=== PATIENT | male | born 1975 | race Caucasian/White ===

== ENCOUNTER 2017-10-29 19:45 | Emergency (ER) | payer SELFPAY ==
[~2017-10-29 19:45] MED LIST changes: -LEVE500T73 PO
--- NOTE | 2017-10-29 19:50 | ER Report ---
History and Physical Time Seen By MD: 19:50 HPI/ROS This is a 42-year-old male who presents to the emergency department in police custody complaining of chest pain. He was let out of snf on [address] approximately 24 hours ago. He had been chilled for his 4th felony DUI. Upon discharge he started drinking again. The patient states that he has had chest pain since 8: 00 this morning. He was pulled over by local police when they noticed he was driving erratically. He was arrested for DUI, and upon arrest he told officers that he was experiencing chest pain. Upon arrival he says he has been experiencing chest pain since this morning. No trauma. No cough or fever chills. Remainder of the 14 system rev: Yes Allergies: Coded Allergies: No Known Drug Allergies (Verified , 10/29/17) Home Meds Reported Medications Levetiracetam (LEVETIRACETAM) 500 Mg Tablet, 500 MG PO BID 10/29/17 Discontinued Reported Medications Oxycodone/Acetaminophen (OXYCODONE/ACETAMINOPHEN 5MG/325 MG) 5 Mg/325 Mg Tab, 1 - 2 TAB PO Q6H Y, #45 0 Refills TAKE 1-2 TABS EVERY 6 HOURS NEEDED FOR PAIN. 10/13/09 Ofloxacin (Ocuflox) 5 Ml Drops, 8 - 10 DROP LEFT EAR DAILY, [address] 8-10 DROPS OF OFLAXACIN IN LEFT EAR ONCE A DAY FOR 15 DAYS. 10/13/09 Reviewed Nurses Notes: Yes Old Medical Records Reviewed: Yes Hx Smoking: Yes Exposure to Second Hand Smoke?: Yes Hx Alcohol Use: Yes Constitutional Vital Sign - Last 24 Hours 10/29/17 10/29/17 10/29/17 10/29/17 19:46 19:46 19:58 20:00 Temp 99.1 Pulse 104 94 Resp 12 B/P (MAP) 118/83 (95) 118/83 118/80 (93) Pulse Ox 97 97 O2 Delivery Nasal Cannula O2 Flow Rate 2.0 10/29/17 10/29/17 10/29/17 10/29/17 20:15 20:30 20:45 21:00 Pulse 95 98 96 95 Resp 24 21 12 B/P (MAP) 126/87 (100) 101/86 (91) Pulse Ox 98 97 Intake and Output 6/10/29/17 10/30/17 15:00 23:00 07:00 Intake Total 1000 ml Balance 1000 ml Physical Exam General Appearance: The patient is alert, has no immediate need for airway protection and no current signs of toxicity. He is clearly intoxicated Eyes: Pupils equal and round no injection. Respiratory: Chest is non tender, lungs are clear to auscultation. Cardiac: regular rate and rhythm Gastrointestinal: Abdomen is soft and non tender, no masses, bowel sounds normal. Extremities have full range of motion and are non tender. Skin: No rashes or lesions. DIFFERENTIAL DIAGNOSIS: After history and physical exam differential diagnosis was considered for chest pain including but not limited to myocardial ischemia, pericarditis pulmonary embolus, chest wall pain, pleural inflammation and pulmonary infectious causes. Medical Decision Making Data Points Result Diagram: 10/29/17202410/29/172024 Laboratory Hematology Test 10/29/17 20:25 Red Blood Count 4.68 M/uL (4.00-5.60) Mean Corpuscular Volume 89.5 fL (80.0-96.0) Mean Corpuscular Hemoglobin 30.5 pg (26.0-33.0) Mean Corpuscular Hemoglobin Concent 34.0 g/dL (32.0-36.0) Red Cell Distribution Width 14.6 % (11.5-14.5) Mean Platelet Volume 7.6 fL (7.2-11.1) Neutrophils (%) (Auto) 57.2 % (39.4-72.5) Lymphocytes (%) (Auto) 29.3 % (17.6-49.6) Monocytes (%) (Auto) 7.9 % (4.1-12.4) Eosinophils (%) (Auto) 2.1 % (0.4-6.7) Basophils (%) (Auto) 3.5 % (0.3-1.4) Nucleated RBC Relative Count (auto) 0.1 /100WBC Neutrophils # (Auto) 3.8 K/uL (2.0-7.4) Lymphocytes # (Auto) 1.9 K/uL (1.3-3.6) Monocytes # (Auto) 0.5 K/uL (0.3-1.0) Eosinophils # (Auto) 0.1 K/uL (0.0-0.5) Basophils # (Auto) 0.2 K/uL (0.0-0.1) Nucleated RBC Absolute Count (auto) 0.01 K/uL Peripheral Blood Smear Yes Y/N Sodium Level 145 mmol/L (137-145) Potassium Level 3.8 mmol/L (3.5-5.0) Chloride Level 104 mmol/L (98-107) Carbon Dioxide Level 23 mmol/L (22-30) Blood Urea Nitrogen 9 mg/dl (9-21) Creatinine 1.00 mg/dl (0.66-1.25) Glomerular Filtration Rate Calc > 60.0 Random Glucose 103 mg/dl (75-110) Calcium Level 8.4 mg/dl (8.4-10.2) Total Bilirubin 0.2 mg/dl (0.2-1.3) Aspartate Amino Transf (AST/SGOT) 55 U/L (0-35) Alanine Aminotransferase (ALT/SGPT) 49 U/L (0-56) Alkaline Phosphatase 68 U/L (0-126) Troponin I < 0.012 ng/ml Total Protein 7.8 g/dl (6.3-8.2) Albumin 4.4 g/dl (3.5-5.0) Serum Alcohol 299 mg/dl Chemistry Test 10/29/17 20:25 White Blood Count 6.6 k/uL (4.5-11.0) Red Blood Count 4.68 M/uL (4.00-5.60) Hemoglobin 14.3 g/dL (14.0-18.0) Hematocrit 41.9 % (42.0-52.0) Mean Corpuscular Volume 89.5 fL (80.0-96.0) Mean Corpuscular Hemoglobin 30.5 pg (26.0-33.0) Mean Corpuscular Hemoglobin Concent 34.0 g/dL (32.0-36.0) Red Cell Distribution Width 14.6 % (11.5-14.5) Platelet Count 371 K/uL (150-450) Mean Platelet Volume 7.6 fL (7.2-11.1) Neutrophils (%) (Auto) 57.2 % (39.4-72.5) Lymphocytes (%) (Auto) 29.3 % (17.6-49.6) Monocytes (%) (Auto) 7.9 % (4.1-12.4) Eosinophils (%) (Auto) 2.1 % (0.4-6.7) Basophils (%) (Auto) 3.5 % (0.3-1.4) Nucleated RBC Relative Count (auto) 0.1 /100WBC Neutrophils # (Auto) 3.8 K/uL (2.0-7.4) Lymphocytes # (Auto) 1.9 K/uL (1.3-3.6) Monocytes # (Auto) 0.5 K/uL (0.3-1.0) Eosinophils # (Auto) 0.1 K/uL (0.0-0.5) Basophils # (Auto) 0.2 K/uL (0.0-0.1) Nucleated RBC Absolute Count (auto) 0.01 K/uL Peripheral Blood Smear Yes Y/N Glomerular Filtration Rate Calc > 60.0 Calcium Level 8.4 mg/dl (8.4-10.2) Total Bilirubin 0.2 mg/dl (0.2-1.3) Aspartate Amino Transf (AST/SGOT) 55 U/L (0-35) Alanine Aminotransferase (ALT/SGPT) 49 U/L (0-56) Alkaline Phosphatase 68 U/L (0-126) Troponin I < 0.012 ng/ml Total Protein 7.8 g/dl (6.3-8.2) Albumin 4.4 g/dl (3.5-5.0) Serum Alcohol 299 mg/dl Toxicology Test 10/29/17 20:25 Serum Alcohol 299 mg/dl EKG/Imaging EKG Interpretation 12 lead EKG: Rhythm: sinus tachycardia Castell: normal QRS: normal ST segments: normal ED Course/Re-evaluation Clinical Indication for ER IV: Hydration ED Course 42-year-old male with multiple arrests for DUI. Was allowed out on [address] yesterday and started to drink again today and was arrested for another DUI. Upon arrest he told the officers that he was experiencing chest pain. Upon arrival he reports chest pain since 0 800 today. One troponin is negative and given the timeline of chest pain he does not need a delta troponin. His EKG just shows sinus tachycardia. He was given a banana bag. I think his chest pain is chest wall pain. He refused a chest x-ray. He was medically cleared for incarceration, and left in the custody of police. Decision to Disposition Date: Oct 29, 2017 Decision to Disposition Time: 21:40 Depart Departure Latest Vital Signs Vital Signs Date Time Temp Pulse Resp B/P (MAP) Pulse Ox O2 Delivery O2 Flow Rate FiO2 10/29/17 21:00 95 101/86 (91) 10/29/17 20:45 12 97 10/29/17 19:58 2.0 10/29/17 19:46 99.1 Nasal Cannula Impression: Primary Impression: Chest pain Additional Impressions: Medical clearance for incarceration ALCOHOL ABUSE WITH INTOXICATION, UNSPECIFIED Condition: Improved Disposition: [facility] TO [facility]CTION[facility] Patient Instructions: Abuse of Alcohol (ED) Problem Qualifiers Primary Impression: Chest pain Chest pain type: unspecified Qualified Codes: R07.9 - Chest pain, unspecified JAH ANN MD Oct 29, 2017 19:50
[2017-10-29] MEDS ORDERED: LEVE500T73 PO (19:56)
--- NOTE | 2017-10-29 20:10 | EKG ---
FACILITY: [facility] - [place] PATIENT NAME: MARLENE CAMARENA : [id number] MR: [id number] V: [id number] EXAM DATE: ORDERING PHYSICIAN: JAH ANN TECHNOLOGIST: LAUREEN Test Reason : CP Blood Pressure : / mmHG Vent. Rate : 102 BPM Atrial Rate : 102 BPM P-R Int : 164 ms QRS Dur : 098 ms QT Int : 328 ms P-R-T Axes : 045 -13 022 degrees QTc Int : 427 ms Sinus tachycardia R wave progression consistent with old ant/sep AR vs lead placement No previous ECGs available Confirmed by RANCHO MORLEY ([id number]) on 10/30/2017 11:19:07 AM Referred By: MARISSA Confirmed By:RANCHO MORLEY
[2017-10-29] MEDS ORDERED: ASPIRIN 81 MG CHEW PO ONE (20:15)
[2017-10-29] MEDS ORDERED: MULTIVITAMINS(*) 10 ML VIAL 10 ML, THIAMINE HCL(*) 200 MG/2 ML IN 100 MG, FOLIC ACID(*)... IV ONE ×2 (20:15→20:45)
[2017-10-29 20:41] LABS: PLATELET COUNT, AUTOMATED 371 K/uL (150-450)
[2017-10-29 21:30] VITALS: BP 121/72
== END 2017-10-29 21:50 ==
LOC: ER 19:56
DX: R07.9 Chest pain, unspecified (principal); F10.229 Alcohol dependence with intoxication, unspecified; R00.0 Tachycardia, unspecified
CPT/HCPCS: 80320; 84484; 85025; 93005; 99001; 99283; J3411; J3475; J7030; 82040; 82247; 82310; 82374; 82435; 82565; 82947; 84075; 84132; 84155; 84295; 84450; 84460; 84520

== ENCOUNTER → 2017-10-29 | Outpatient (CLI) | payer SELFPAY ==
[~2017-10-29] MED LIST: LEVE500T73 PO; NO MEDS; OFLO5DRO38 LEFT EAR; PER PO
== END ==
LOC: AMB 19:12
PROVIDERS: ATTEND Nurse Practitioner
DX: E10.649 Type 1 diabetes mellitus with hypoglycemia without coma (principal); R07.9 Chest pain, unspecified
CPT/HCPCS: A0425; A0427